=== PATIENT | male | born 1940 | race Caucasian/White ===

== ENCOUNTER → 2020-02-08 13:58 | Outpatient (BNVA) | payer MEDICARE, SELFPAY | PROVIDERS: PCP Internal Medicine; Visit Provider Internal Medicine Pulmonary Disease | DX: J44.9 Chronic obstructive pulmonary disease, unspecified (principal); Z79.899 Other long term (current) drug therapy | CPT/HCPCS: 99212 ==

== ENCOUNTER → 2020-10-10 11:22 | Outpatient (BNVA) | payer MEDICARE, SELFPAY | PROVIDERS: PCP Internal Medicine; Visit Provider Internal Medicine Pulmonary Disease | DX: J44.9 Chronic obstructive pulmonary disease, unspecified (principal) | CPT/HCPCS: 99212 ==

== ENCOUNTER → 2020-12-25 10:26 | Outpatient (BNVA) | payer MEDICARE, SELFPAY | PROVIDERS: PCP Internal Medicine; Visit Provider Internal Medicine Pulmonary Disease | DX: J44.9 Chronic obstructive pulmonary disease, unspecified (principal) | CPT/HCPCS: 99212 ==

== ENCOUNTER 2021-09-23 09:39 | Outpatient (REF) | payer MEDICARE, SELFPAY ==
[2021-09-23 11:29] LABS: MANUAL DIFF FLAG NO
[2021-09-23 11:41] LABS: Basophils Percent Auto 0.5 % (0-2); Eosinophils Absolute Auto 0.1 X10*3/uL (0.0-0.4); Eosinophils Percent Auto 2.1 % (0-4); Hematocrit 46.8 % (42.0-52.0); Hemoglobin 15.7 g/dl (14.0-18.0); Imm Gran Abs Auto 0.03 X10*3/uL (0.00-0.03); Imm Gran Pct Auto 0.5 % (0.0-0.4); Lymphocytes Percent Auto 14.5 % (20-40); Mean Corpuscular HGB Conc 33.5 g/dl (31.0-36.0); Mean Corpuscular Hemoglobin 32.2 pg (27.0-33.0); Mean Corpuscular Volume 95.9 fL (80.0-98.0); Mean Platelet Volume 10.7 fL (9.4-12.4); Monocytes Absolute Auto 0.5 X10*3/uL (0.1-1.2); Monocytes Percent Auto 6.8 % (2-11); Neutrophils Percent Auto 75.6 % (45-73); Platelet Count 211 X10*3/uL (160-400); Red Blood Count 4.88 X10*6/uL (4.60-5.80); Red Cell Distribution Width 13.3 % (11.0-16.0); White Blood Count 6.6 X10*3/uL (4.8-10.8)
[2021-09-23 12:15] LABS: TSH reflex Free T4 1.91 uIU/mL (0.32-4.0)
[2021-09-23 12:28] LABS: Alanine Aminotransferase 10 U/L (0-40); Albumin Level 4.4 g/dL (3.5-5.0); Alkaline Phosphatase 89 U/L (39-117); Anion Gap 12 (12-20); Aspartate Amino Transferase 16 U/L (5-37); Bilirubin Total 1.4 mg/dL (0.0-1.0); Blood Urea Nitrogen 11 mg/dL (9-16); Calcium 9.2 mg/dL (8.4-10.2); Carbon Dioxide 26 mmol/L (22-29); Chloride 104 mmol/L (96-108); Estimated Glomerular Filt Rate > 60; Glucose Fasting 102 mg/dL (60-99); Potassium 4.7 mmol/L (3.3-5.1); Sodium 137 mmol/L (135-145); Total Protein 6.9 g/dL (6.5-8.0)
== END 2021-09-23 09:40 | disposition home or self-care (01) ==
LOC: HO.HMGCLDS 09:39
PROVIDERS: PCP Internal Medicine; Visit Provider Internal Medicine
DX: Z00.00 Encounter for general adult medical examination without abnormal findings (principal); I10 Essential (primary) hypertension; E78.5 Hyperlipidemia, unspecified
CPT/HCPCS: 36415; 80053; 84443; 85025

== ENCOUNTER → 2021-10-05 10:37 | Outpatient (BNVA) | payer MEDICARE, SELFPAY | PROVIDERS: PCP Internal Medicine; Visit Provider Internal Medicine Pulmonary Disease | DX: C34.91 Malignant neoplasm of unspecified part of right bronchus or lung (principal); J44.9 Chronic obstructive pulmonary disease, unspecified | CPT/HCPCS: 99212 ==

== ENCOUNTER → 2022-01-25 10:11 | Outpatient (BNVA) | payer MEDICARE, SELFPAY | PROVIDERS: PCP Internal Medicine; Visit Provider Internal Medicine Pulmonary Disease | DX: J44.9 Chronic obstructive pulmonary disease, unspecified (principal); C34.90 Malignant neoplasm of unspecified part of unspecified bronchus or lung | CPT/HCPCS: 99212 ==

== ENCOUNTER → 2022-03-30 14:53 | Outpatient (REF) | payer OTHER, SELFPAY ==
--- NOTE | 2022-03-30 14:58 | CA_ITS ---
Transthoracic Echocardiogram Patient (Last, First, Middle): Quique Giang E Gender: Male Date of : 1940 Age: 82 Procedure Date: 03/30/2022 Procedure Type: Transthoracic Echocardiogram Location: OP Height: 182.88 cm Weight: 61.24 kg BSA: 1.80 m2 Heart Rate: 70 bpm BP: 108 / 70 mmHg Merchandising Specialist: SB Referring MD: Diana Parisi MD Symptoms: I35.0 - Nonrheumatic aortic (valve) stenosis Study Quality: Adequate ECG Rhythm: Sinus arrhythmia Conclusions: - The left ventricular systolic function is normal. The calculated ejection fraction is 70% by biplane method. - There is severe aortic valve stenosis. Findings Left Ventricle Normal left ventricular cavity size. The left ventricular systolic function is normal. The calculated ejection fraction is 70% by biplane method. There is no evidence of regional wall motion abnormalities. E/E prime ratio is between 8 and 15 consistent with indeterminate filling pressures. Evidence suggests grade I (mild) diastolic dysfunction. There is mild septal asymmetric hypertrophy. Right Ventricle Mildly increased right ventricular cavity size. There is normal right ventricular systolic function. Atria Both atria are normal in size. Aortic Valve There is moderate calcification of the aortic valve. There is severe aortic valve stenosis. The peak aortic velocity is 6.40 m/s with a calculated peak gradient of 164 mmHg. The mean gradient is 89 mmHg. The aortic valve area is 0.77 cm2. There is no aortic valve regurgitation. Mitral Valve There is mild anterior mitral leaflet thickening. There is mild mitral annular calcification. There is trace mitral valve regurgitation. There is no mitral valve stenosis. Pulmonic Valve The pulmonic valve is likely normal. Tricuspid Valve There is trace tricuspid valve regurgitation. Mild pulmonary hypertension is present. Great Vessels The asc aorta is normal in size. Venous The inferior vena cava is normal in size and collapses less than 50% with inspiration. Pericardium/Pleural There is no evidence of pericardial effusion. Prior Study Comparison Changes noted compared to prior study dated: 08/29/2018. Progression of aortic stenosis. Measurements 2D Linear Measurements IVSd: 1.10 0.6-0.9/0.6-1.0 cm LVIDd: 3.41 3.9-5.3/4.2-5.9 cm LVIDd Index: 1.89 2.4-3.2/2.2-3.1 cm/m2 LVIDs: 1.87 2.0-3.6 cm LVPWd: 0.96 0.7-1.1 cm Ao Root: 3.10 2.1-3.5 cm LA Diam: 3.10 2.7-3.8/3.0-4.0 cm LAIDs Index: 1.72 1.5-2.3 cm/m2 LV Mass: 129.26 67-162/88-224 g LV Mass Index: 71.81 43-95/49-115 g/m2 LVOT Diam: 2.30 3.0+(-)1.3 cm 2D Systolic Function EF 4C: 66.80 >55% EF 2C: 73.00 >55% EF BiP: 70.30 >55% Mitral Valve MV Pk E: 0.70 MV PK A: 1.00 MV Decel Time: 264.00 E/A: 0.70 E'Lateral: 6.74 E'Medial: 5.55 E/E' Med: 12.60 E/E' Lat: 10.40 PHT: 77.00 MVA PHT: 2.86 Decel Barton: 2.65 Aortic Valve AoV Pk Duarte: 6.40 AoV Mn Duarte: 4.43 AoV VTI: 1.59 AoV Pk Grad: 164.00 Aov Mn Grad: 89.00 ITALIA Cont.VTI: 0.77 AI Pk Duarte: 4.16 AI Barton: 2.20 LVOT LVOT Pk Duarte: 1.15 LVOT Mn Duarte: 0.85 LVOT VTI: 0.28 LVOT Pk Grad: 5.00 LVOT Mn Grad: 4.00 LVOT Diam: 2.30 LVOT Area: 4.15 Diastolic Function MV Pk E: 0.70 MV Pk A: 1.00 E/A: 0.70 E'Medial: 5.55 E/E' Med: 12.60 E' Laterial: 6.74 E/E' Lat: 10.40 Right Ventricle TAPSE (mm): 20.70 TVS' Duarte: 10.40 Tricuspid Valve TR Pk Duarte: 2.71 TR Pk Grad: 29.00 RA Press: 8.00 RVSP: 37.00 Great Vessels Aorta Ao Root-2D: 3.10 2.0-3.7 cm Sinus of Valsalva: 3.10 2.0-3.5 cm Ao Asc: 3.60 2.1-3.4 cm Pulmonary Valve PV Pk Duarte: 0.66 Peak PV Grad: 2.00 Updated in Other Vendor System with Status of Final Damion Duarte MD electronically signed on 03/30/2022 4:27:30 PM with status of Final
== END ==
LOC: HO.CARD 14:53
PROVIDERS: PCP Internal Medicine; Visit Provider Internal Medicine
DX: I35.0 Nonrheumatic aortic (valve) stenosis (principal)
CPT/HCPCS: 93306

== ENCOUNTER 2022-05-24 12:38 | Outpatient (REF) | payer OTHER, SELFPAY ==
--- NOTE | 2022-05-24 | PFT_ITS ---
INDICATION: COPD. SPIROMETRY: FEV1 to FVC 64% with an FEV1 of 1.73 L, which is 61% predicted and FVC of 3.76 L, which is 94% predicted. Bronchodilators were not used since the patient had already used bronchodilators in the last hour or so. Maximum voluntary ventilation is 51% predicted. LUNGS VOLUMES: Total lung capacity 86% predicted. DIFFUSION CAPACITY: DLCO 25% predicted. COMPARISON: None. INTERPRETATION: There is no obstructive or restrictive ventilatory defect consistent with moderate COPD. The patient had already used own short-acting beta agonist, so therefore bronchodilator response could not be tested. The patient does have moderate decrease in the maximum voluntary ventilation secondary to likely deconditioning, other neuromuscular deconditions cannot be ruled out. Lung volumes are within normal limits and the patient does have a severe diffusion impairment secondary to underlying COPD, emphysema, and/or pulmonary vascular conditions. The diffusion capacity should also be corrected for hemoglobin. Clinical correlation warranted. MD ROGELIO Delong/JAYESH / [id number]
== END 2022-05-24 12:39 | disposition home or self-care (01) ==
LOC: HO.RESP 12:38
PROVIDERS: PCP Internal Medicine; Visit Provider Internal Medicine Pulmonary Disease
DX: J44.9 Chronic obstructive pulmonary disease, unspecified (principal)
CPT/HCPCS: 94010; 94727; 94729

== ENCOUNTER → 2022-05-28 10:58 | Outpatient (BNVA) | payer MEDICARE, SELFPAY | PROVIDERS: PCP Internal Medicine; Visit Provider Internal Medicine Pulmonary Disease | DX: Z01.811 Encounter for preprocedural respiratory examination (principal); Z87.891 Personal history of nicotine dependence | CPT/HCPCS: 99212 ==

== ENCOUNTER 2022-07-05 14:11 | Outpatient (REF) | payer MEDICARE, SELFPAY ==
[2022-07-05 16:10] LABS: Influenza A PCR NEGATIVE (Negative); Influenza B PCR NEGATIVE (Negative); Resp Syncy Virus RNA Qual PCR NEGATIVE (Negative); SARS COV2 PCR INHOUSE NEGATIVE (Negative)
== END 2022-07-05 14:12 | disposition home or self-care (01) ==
LOC: HO.LNP 14:11
PROVIDERS: Visit Provider Internal Medicine
DX: Z20.822 Contact with and (suspected) exposure to COVID-19 (principal); J06.9 Acute upper respiratory infection, unspecified
CPT/HCPCS: 0241U

== ENCOUNTER → 2022-08-24 07:30 | Outpatient (REF) | payer MEDICARE, SELFPAY ==
--- NOTE | 2022-08-24 07:38 | CA_ITS ---
Transthoracic Echocardiogram Patient (Last, First, Middle): Quique Giang E Gender: Male Date of : 1940 Age: 82 Procedure Date: 08/24/2022 Procedure Type: Transthoracic Echocardiogram Location: [place] Height: 177.8 cm Weight: 58.97 kg BSA: 1.74 m2 Heart Rate: bpm BP: 158 / 70 mmHg Die Filer: SB Referring MD: yadira olivera Symptoms: AORTIC STENOSIS Study Quality: TDS narrow ribs, adequate apical window ECG Rhythm: Arryhythmia Conclusions: - The left ventricular systolic function is normal. The calculated ejection fraction is 63% by biplane method. - A bioprosthetic aortic valve is present. The prosthetic aortic valve appears to be functioning normally. Findings Left Ventricle Normal left ventricular cavity size. There is normal left ventricular wall thickness. The left ventricular systolic function is normal. The calculated ejection fraction is 63% by biplane method. There is no evidence of regional wall motion abnormalities. E/E prime ratio is >15, consistent with elevated filling pressures. Evidence suggests grade I (mild) diastolic dysfunction. Right Ventricle Normal right ventricular cavity size and systolic function. Atria Both atria are normal in size. There is a mobile atrial septum noted. Aortic Valve A bioprosthetic aortic valve is present. The prosthetic aortic valve appears to be functioning normally. The mean gradient is 10 mmHg. There is no aortic valve regurgitation. Mitral Valve The mitral valve appears normal. There is mild mitral valve regurgitation. There is no mitral valve stenosis. Pulmonic Valve The pulmonic valve is likely normal. Tricuspid Valve There is mild tricuspid valve regurgitation. Mild pulmonary hypertension is present. Great Vessels The asc aorta is normal in size. Venous The inferior vena cava is normal in size and collapses greater than 50% with inspiration. Pericardium/Pleural There is no evidence of pericardial effusion. Prior Study Comparison Changes noted compared to prior study dated: 06/30/2022. s/p TAVR. Measurements 2D Linear Measurements IVSd: 0.77 0.6-0.9/0.6-1.0 cm LVIDd: 3.54 3.9-5.3/4.2-5.9 cm LVIDd Index: 2.03 2.4-3.2/2.2-3.1 cm/m2 LVIDs: 2.31 2.0-3.6 cm LVPWd: 0.69 0.7-1.1 cm LA Diam: 2.40 2.7-3.8/3.0-4.0 cm LAIDs Index: 1.38 1.5-2.3 cm/m2 LV Mass: 83.63 67-162/88-224 g LV Mass Index: 48.06 43-95/49-115 g/m2 LVOT Diam: 2.20 3.0+(-)1.3 cm 2D Systolic Function EF 4C: 60.30 >55% EF 2C: 68.00 >55% EF BiP: 63.40 >55% Mitral Valve MV Pk E: 0.81 MV PK A: 0.99 MV Decel Time: 359.00 E/A: 0.80 E'Lateral: 5.44 E'Medial: 3.81 E/E' Med: 21.40 E/E' Lat: 15.00 PHT: 105.00 MVA PHT: 2.10 Decel Todd: 2.27 Aortic Valve AoV Pk Duarte: 2.20 AoV Mn Duarte: 1.52 AoV VTI: 0.48 AoV Pk Grad: 19.00 Aov Mn Grad: 10.00 ITALIA Cont.VTI: 2.04 LVOT LVOT Pk Duarte: 1.17 LVOT Mn Duarte: 0.86 LVOT VTI: 0.26 LVOT Pk Grad: 5.00 LVOT Mn Grad: 3.00 LVOT Diam: 2.20 LVOT Area: 3.80 Diastolic Function MV Pk E: 0.81 MV Pk A: 0.99 E/A: 0.80 E'Medial: 3.81 E/E' Med: 21.40 E' Laterial: 5.44 E/E' Lat: 15.00 Right Ventricle TAPSE (mm): 21.20 TVS' Duarte: 12.60 Tricuspid Valve TR Pk Duarte: 2.99 TR Pk Grad: 36.00 RA Press: 3.00 RVSP: 39.00 Great Vessels Aorta Ao Asc: 3.50 2.1-3.4 cm Pulmonary Valve PV Pk Duarte: 0.70 Peak PV Grad: 2.00 Updated in Other Vendor System with Status of Final Damion Duarte MD electronically signed on 08/24/2022 4:03:56 PM with status of Final
== END ==
LOC: HO.CARD 07:30
PROVIDERS: PCP Internal Medicine; Visit Provider Nurse Practitioner
DX: I35.2 Nonrheumatic aortic (valve) stenosis with insufficiency (principal)
CPT/HCPCS: 93306

== ENCOUNTER 2022-12-16 10:26 | Outpatient (AMB) | payer MEDICARE, SELFPAY ==
[2022-12-16 10:36] VITALS: BP 138/82; PULSE 69; O2SAT 96; BMI 16.3
--- NOTE | 2022-12-16 10:36 | A.OFFVIS_ITS ---
Intake Vital Signs 12/16/22 10:36 Height 6 ft 2 in Weight 126 lb 12.253 oz BMI 16.3 BP 138/82 Blood Pressure Location Rt brachial Position Sitting Pulse 69 Pulse Source Doppler Pulse Oximetry (%) 96 Oxygen Delivery Method Room Air Intake Visit Reasons: copd Allergies lisinopril Allergy (Unknown, Verified 12/16/22 10:40) anaphylaxis roflumilast [From Daliresp] Allergy (Unknown, Verified 12/16/22 10:40) Diarrhea, nausea doxycycline Adverse Reaction (Unknown, Verified 12/16/22 10:40) GERD HPI copd HPI Details 82-year-old gentleman former 25 pack yea rs smoker, quit 30 years prior, followed for severe COPD.? 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 He has been offered XRT by his radiation oncologist, however he does not want to proceed understanding that would accelerate his mor tality, but radiation treatment would worsen his dyspnea and he does not want that.? Now he is using duo nebs 4 times a day, albuterol MDI, and theophylline 300 with good control of his underlying symptoms.? He recently had his TAVR done with resultant improvement in dyspnea. Today he complains of bronchitic exacerbation symptomatic with cough and sputum production. [facility] Medical History (Updated 12/16/22 @ 11:10 by Cristian Duke MD) CVA (cerebral vascular accident) Colon polyps Aortic stenosis Hyperlipidemia HTN (hypertension) Lung cancer Annual physical exam Surgical History No pertinent past surgical history Family History Father Throat cancer Social History Housing: House Alcohol intake: never Patient Tobacco Use Status: Former Tobacco user Cigarette Packs Per Day: 1 Years Smoked: 35 e-Cigarette/Vaping Use: Never Used Second Hand Smoke Exposure: No service: Yes Current occupational status: retired Current occupation: printer Current occupational exposures/hazards: Yes (when working - smoke from machines ) Cognitive needs: No Hearing needs: No Vision needs: Yes Review of Systems Const Denies daytime sleepiness, Denies excessive sweating, Denies fatigue, Denies fever(s), Denies lethargy, Denies malaise, Denies night sweats, Denies snoring and Denies weight loss Eyes Denies blurry vision and Denies itchy eyes ENT Denies nasal congestion, Denies post nasal drip, Denies sinus pain, Denies sinus pressure and Denies other ( Thrush) Card Denies chest pain, Denies pedal edema, Denies dyspnea, Denies orthopnea and Denies paroxysmal nocturnal dyspnea Resp Reports cough, Denies hemoptysis, Reports excessive phlegm production, Denies dyspnea, Denies snoring and Denies wheezing GI Denies abdominal pain and Denies heartburn Musc Denies myalgias, Denies arthralgias and Denies joint swelling Skin/Breast Denies rash Neuro Denies memory loss and Denies seizure-like activity Psych Denies abnormal sleep pattern, Denies anxiety and Denies memory loss Endo Denies excessive sweating, Denies fatigue and Denies heat intolerance Telly/Lymph Denies easy bruising Aller/Immun Denies itchy eyes, Denies seasonal rhinorrhea and Denies wheezing Physical Exam Vital Signs: Last Vital Signs Pulse 69 12/16/22 10:36 BP 138/82 12/16/22 10:36 Pulse Ox 96 12/16/22 10:36 Oxygen Delivery Method Room Air 12/16/22 10:36 BMI result Body Mass Index 16.3 Const General: no acute distress and alert Nutritional Appearance: not obese Orientation/consciousness: Other orientation findings ( oriented) HEENT Head: Yes atraumatic Eyes General: appearance normal, both eyes and all related structures Sclerae: sclerae normal EOM: EOMs intact bilaterally Neck Neck: Yes supple Lymphatic: no lymphadenopathy noted Resp Effort & Inspection: normal respiratory effort and no use of accessory muscles Auscultation: clear to auscultation bilaterally Cardio Rate: regular rate Rhythm: regular rhythm Heart sounds: no gallops, no murmurs and no rubs Skin General skin exam: other ( warm) Extrem General: No clubbing, No cyanosis and No edema Assessment & Plan Assessment & Plan (1) COPD, severe: Code(s): J44.9 - Chronic obstructive pulmonary disease, unspecified Plan: Baseline well controlled on theophylline 300 and duo nebs. Now with an acute exacerbation. Will treat with a course of azithromycin. Codeine syrup for symptomatic relief of cough. (2) Lung cancer: Code(s): C34.90 - Malignant neoplasm of unspecified part of unspecified bronchus or lung Plan: Now with 3rd recurrence. Patient is not interested in further treatment. Medications: New codeine-guaifenesin 10-100 mg/5 mL 10 mL PO Q4-6H PRN 473 mL 1RF flu symptoms 30 days azithromycin For 250 mg dose pack: take 500 mg today (day 1), then 250 mg for 4 days (days 2-5) PO 6 tabs 0RF Changed From theophylline ER 300 mg PO DAILY To theophylline ER 300 mg PO DAILY 90 tabs 4RF 90 days Coding Level of Care Code Est Pt Level 4 (93906) Diagnoses COPD, severe J44.9 Lung cancer C34.90
== END 2022-12-16 10:54 | disposition home or self-care (01) ==
PROVIDERS: PCP Internal Medicine; Visit Provider Internal Medicine Pulmonary Disease
DX: J44.9 Chronic obstructive pulmonary disease, unspecified (principal); C34.90 Malignant neoplasm of unspecified part of unspecified bronchus or lung
CPT/HCPCS: 99214

== ENCOUNTER → 2022-12-16 10:26 | Outpatient (BNVA) | payer MEDICARE, SELFPAY | PROVIDERS: PCP Internal Medicine; Visit Provider Internal Medicine Pulmonary Disease | DX: J44.9 Chronic obstructive pulmonary disease, unspecified (principal); C34.91 Malignant neoplasm of unspecified part of right bronchus or lung; Z79.899 Other long term (current) drug therapy; Z87.891 Personal history of nicotine dependence | CPT/HCPCS: 99212 ==

== ENCOUNTER 2023-02-04 10:45 | Outpatient (AMB) | payer MEDICARE, SELFPAY ==
--- NOTE | 2023-02-04 10:55 | MHC.PC.OV ---
Vital Signs 02/04/23 10:57 Height 6 ft 2 in Weight 128 lb BMI 16.4 BP 110/74 Blood Pressure Location Rt brachial Position Sitting Pulse 65 Pulse Source Pulse Oximeter Pulse Oximetry (%) 98 Oxygen Delivery Method Room Air Intake Visit Reasons: Annual Physical Intake Note: Pt is here today for his PE Allergies lisinopril Allergy (Unknown, Verified 02/04/23 10:56) anaphylaxis roflumilast [From Daliresp] Allergy (Unknown, Verified 02/04/23 10:56) Diarrhea, nausea doxycycline Adverse Reaction (Unknown, Verified 02/04/23 10:56) GERD Tobacco use date assessed: 02/04/23 Fall risk assessment: No Falls in past year Last assessed Fall Risk: 02/04/23 Dental Screening Dental Screen Date: 02/04/23 Did you have a dental visit in the last 12 months?: No Was dental information given to patient?: Patient declined HPI Annual Physical HPI Details Pt presents for PE. [facility] Medical History (Updated 02/04/23 @ 11:41 by Diana Parisi MD) CVA (cerebral vascular accident) Colon polyps Aortic stenosis Hyperlipidemia HTN (hypertension) Lung cancer Annual physical exam Surgical History No pertinent past surgical history Family History Father Throat cancer Social History Housing: House Alcohol intake: never Patient Tobacco Use Status: Former Tobacco user Cigarette Packs Per Day: 1 Years Smoked: 35 e-Cigarette/Vaping Use: Never Used Second Hand Smoke Exposure: No service: Yes Current occupational status: retired Current occupation: printer Current occupational exposures/hazards: Yes (when working - smoke from machines ) Cognitive needs: No Hearing needs: No Vision needs: Yes Questionnaire Thrive Questionnaire Date Thrive assessed: 03/24/22 HAZEL-7 AMB Questionnaire HAZEL-7 Date HAZEL - 7 assessed: 07/28/22 Source: Developed by Drs. Herminio Herrera, Alexandra Shirley, Horace Jose and colleagues, with an educational nya from [employer] Review of Systems Const All systems reviewed & are unremarkable except as noted in HPI and below Reports no additional complaints Eyes Reports no additional complaints ENT Reports no additional complaints Card Reports no additional complaints Resp Reports no additional complaints GI Reports no additional complaints Reports no additional complaints Physical exam (Primary Care) Vital Signs: Last Vital Signs Pulse 105 H 02/04/23 10:57 BP 110/74 02/04/23 10:57 Pulse Ox 98 02/04/23 10:57 Oxygen Delivery Method Room Air 02/04/23 10:57 BMI result Body Mass Index 16.4 Tobacco/Smoking Status: Tobacco use Status Tobacco use date assessed 02/04/23 02/04/23 11:02 Patient Tobacco Use Status Former Tobacco user 02/04/23 11:02 e-Cigarette/Vaping Use Never Used 02/04/23 11:02 Thrive Assessment: Date of Thrive Assessment Date Thrive assessed 03/24/22 02/04/23 11:02 Const General: no acute distress HENMT Head: Yes normal to inspection Ears: hearing grossly normal bilaterally Face and sinus: Yes normal facial exam Mouth: Normal oral and palatal mucosa present Eyes General: appearance normal, both eyes and all related structures Resp Effort & Inspection: normal respiratory effort Auscultation: clear to auscultation bilaterally Cardio Rhythm: regular rhythm Heart sounds: S1 normal heart sound present and S2 normal heart sound present GI Inspection: Yes normal to inspection Palpation (GI): Soft to palpation Percussion: Yes normal to percussion Auscultation: normal bowel sounds Assessment and Plan Assessment & Plan (1) Hyperlipidemia: Code(s): E78.5 - Hyperlipidemia, unspecified Plan: on statin (2) HTN (hypertension): Code(s): I10 - Essential (primary) hypertension Plan: BP is low, pt will stop Amlodipine and cont Atenolol (3) Lung cancer: Comment: RECURRENT, S/P resection/chemo/Rtx, no further treatment recommended Code(s): C34.90 - Malignant neoplasm of unspecified part of unspecified bronchus or lung (4) Annual physical exam: Code(s): Z00.00 - Encounter for general adult medical examination without abnormal findings Plan: well balanced diet, regular physiscal activity, return for fasting labs (5) COPD, severe: Code(s): J44.9 - Chronic obstructive pulmonary disease, unspecified Plan: cont current tx (6) Colon polyps: Comment: precancerous colonoscopy 05/2020, no more colonoscopy Code(s): K63.5 - Polyp of colon (7) Aortic stenosis: Comment: severe, Echo 08/2018 peak gradient 77, s/p TAVR 05/29/22 at [facility] Code(s): I35.0 - Nonrheumatic aortic (valve) stenosis Orders: Orders Comprehensive [place]. Panel Fast Today C34.90 - Malignant neoplasm of unspecified part of unspecified bronchus or lung, E78.5 - Hyperlipidemia, unspecified, I10 - Essential (primary) hypertension, Z00.00 - Encounter for general adult medical examination without abnormal findings Lipid Panel Today C34.90 - Malignant neoplasm of unspecified part of unspecified bronchus or lung, E78.5 - Hyperlipidemia, unspecified, I10 - Essential (primary) hypertension, Z00.00 - Encounter for general adult medical examination without abnormal findings Complete Blood Count Auto Diff Today C34.90 - Malignant neoplasm of unspecified part of unspecified bronchus or lung, E78.5 - Hyperlipidemia, unspecified, I10 - Essential (primary) hypertension, Z00.00 - Encounter for general adult medical examination without abnormal findings Medications: Refilled clopidogrel 75 mg PO DAILY 90 tabs 3RF donepezil 10 mg PO DAILY 90 tabs 3RF tamsulosin 0.4 mg PO DAILY 90 caps 3RF theophylline ER 300 mg PO DAILY 90 days 90 tabs 4RF atenolol 50 mg PO DAILY 90 tabs 3RF atorvastatin 80 mg PO DAILY 90 tabs 3RF Discontinued amlodipine Discontinued Reason: Doctor's Order 2.5 mg PO DAILY 100 tabs 1RF Coding Level of Care Code Est Pt Prev Care >65y(60415) Diagnoses Hyperlipidemia E78.5 HTN (hypertension) I10 Lung cancer C34.90 Annual physical exam Z00.00 COPD, severe J44.9 Colon polyps K63.5 Aortic stenosis I35.0
[2023-02-04 10:57] VITALS: BP 110/74; PULSE 65; O2SAT 98; BMI 16.4
== END 2023-02-04 11:46 | disposition home or self-care (01) ==
PROVIDERS: Visit Provider Internal Medicine
DX: Z00.00 Encounter for general adult medical examination without abnormal findings (principal); C34.90 Malignant neoplasm of unspecified part of unspecified bronchus or lung; J44.9 Chronic obstructive pulmonary disease, unspecified; E78.5 Hyperlipidemia, unspecified; I10 Essential (primary) hypertension; K63.5 Polyp of colon; I35.0 Nonrheumatic aortic (valve) stenosis
CPT/HCPCS: 99397

== ENCOUNTER 2023-02-05 09:44 | Outpatient (REF) | payer MEDICARE, SELFPAY ==
[2023-02-05 11:07] LABS: MANUAL DIFF FLAG NO
[2023-02-05 11:14] LABS: Basophils Percent Auto 0.5 % (0-2); Eosinophils Absolute Auto 0.1 X10*3/uL (0.0-0.4); Eosinophils Percent Auto 1.8 % (0-4); Hematocrit 45.5 % (42.0-52.0); Hemoglobin 15.5 g/dl (14.0-18.0); Imm Gran Abs Auto 0.02 X10*3/uL (0.00-0.03); Imm Gran Pct Auto 0.3 % (0.0-0.4); Lymphocytes Absolute Auto 1.1 X10*3/uL (1.2-4.9); Lymphocytes Percent Auto 17.9 % (20-40); Mean Corpuscular HGB Conc 34.1 g/dl (31.0-36.0); Mean Corpuscular Hemoglobin 32.9 pg (27.0-33.0); Mean Corpuscular Volume 96.6 fL (80.0-98.0); Mean Platelet Volume 10.5 fL (9.4-12.4); Monocytes Absolute Auto 0.4 X10*3/uL (0.1-1.2); Monocytes Percent Auto 6.3 % (2-11); Neutrophils Absolute Auto 4.5 x10*3/uL (2.0-8.3); Neutrophils Percent Auto 73.2 % (45-73); Platelet Count 218 X10*3/uL (160-400); Red Blood Count 4.71 X10*6/uL (4.60-5.80); Red Cell Distribution Width 13.1 % (11.0-16.0); White Blood Count 6.2 X10*3/uL (4.8-10.8)
[2023-02-05 11:44] LABS: Alanine Aminotransferase 7 U/L (0-40); Albumin Level 3.9 g/dL (3.5-5.0); Alkaline Phosphatase 82 U/L (39-117); Anion Gap 9 (12-20); Aspartate Amino Transferase 15 U/L (5-37); Bilirubin Total 0.8 mg/dL (0.0-1.0); Blood Urea Nitrogen 12 mg/dL (9-16); Calcium 9.1 mg/dL (8.4-10.2); Carbon Dioxide 29 mmol/L (22-29); Chloride 105 mmol/L (96-108); Cholesterol 129 mg/dL (<200); Estimated Glomerular Filt Rate > 60; Glucose Fasting 104 mg/dL (60-99); HDL Cholesterol 53 mg/dL (>40); LDL Cholesterol Calculated 66 mg/dL (<100); Potassium 4.6 mmol/L (3.3-5.1); Sodium 138 mmol/L (135-145); Total Protein 6.6 g/dL (6.5-8.0); Triglycerides 54 mg/dL (<150)
== END 2023-02-05 09:45 | disposition home or self-care (01) ==
LOC: HO.HMGCLDS 09:44
PROVIDERS: PCP Internal Medicine; Visit Provider Internal Medicine
DX: Z00.00 Encounter for general adult medical examination without abnormal findings (principal); E78.5 Hyperlipidemia, unspecified; I10 Essential (primary) hypertension; J44.9 Chronic obstructive pulmonary disease, unspecified; C34.90 Malignant neoplasm of unspecified part of unspecified bronchus or lung
CPT/HCPCS: 36415; 80053; 80061; 85025

== ENCOUNTER 2023-04-22 10:02 | Outpatient (AMB) | payer MEDICARE, SELFPAY ==
[2023-04-22 10:07] VITALS: BP 122/64; PULSE 73; O2SAT 86; BMI 16.3
--- NOTE | 2023-04-22 10:07 | MHC.OFFVIS ---
Intake Vital Signs 04/22/23 10:07 Height 6 ft 2 in Weight 126 lb 12.253 oz BMI 16.3 BP 122/64 Blood Pressure Location Lt brachial Position Sitting Pulse 73 Pulse Source Pulse Oximeter Pulse Oximetry (%) 86 L Oxygen Delivery Method Room Air Intake Visit Reasons: copd Intake Note: pt is here for follow up and states he is short of breath with any movement. Men'S Leather Dress Belt Maker Required: No Allergies lisinopril Allergy (Unknown, Verified 04/22/23 10:13) anaphylaxis roflumilast [From Daliresp] Allergy (Unknown, Verified 04/22/23 10:13) Diarrhea, nausea doxycycline Adverse Reaction (Unknown, Verified 04/22/23 10:13) GERD HPI copd HPI Details 82-year-old gentleman former 25 pack years smoker, quit 30 years prior, followed for severe COPD.? 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 He has been offered XRT by his radiation oncologist, however he does not want to proceed understanding that would accelerate his mortality, but radiation treatment would worsen his dyspnea and he does not want that.? Now he is using duo nebs 4 times a day, albuterol MDI, and theophylline 300 with good control of his underlying symptoms.? He had his TAVR done with some improvement in dyspnea. Today he complains of slowly worsening dyspnea. 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 from machines ) Cognitive needs: No Hearing needs: No Vision needs: Yes Review of Systems Const Denies daytime sleepiness, Denies excessive sweating, Denies fatigue, Denies fever(s), Denies lethargy, Denies malaise, Denies night sweats, Denies snoring and Denies weight loss Eyes Denies blurry vision and Denies itchy eyes ENT Denies nasal congestion, Denies post nasal drip, Denies sinus pain, Denies sinus pressure and Denies other ( Thrush) Card Denies chest pain, Denies pedal edema, Denies dyspnea, Reports dyspnea on exertion, Denies orthopnea and Denies paroxysmal nocturnal dyspnea Resp Denies cough, Denies hemoptysis, Denies excessive phlegm production, Denies dyspnea, Reports dyspnea on exertion, Denies snoring and Denies wheezing GI Denies abdominal pain and Denies heartburn Musc Denies myalgias, Denies arthralgias and Denies joint swelling Skin/Breast Denies rash Neuro Denies memory loss and Denies seizure-like activity Psych Denies abnormal sleep pattern, Denies anxiety and Denies memory loss Endo Denies excessive sweating, Denies fatigue and Denies heat intolerance Telly/Lymph Denies easy bruising Aller/Immun Denies itchy eyes, Denies seasonal rhinorrhea and Denies wheezing Physical Exam Vital Signs: Last Vital Signs Pulse 73 04/22/23 10:07 BP 122/64 04/22/23 10:07 Pulse Ox 86 L 04/22/23 10:07 Oxygen Delivery Method Room Air 04/22/23 10:07 BMI result Body Mass Index 16.3 Const General: no acute distress and alert Nutritional Appearance: not obese Orientation/consciousness: Other orientation findings ( oriented) HEENT Head: Yes atraumatic Eyes General: appearance normal, both eyes and all related structures Sclerae: sclerae normal EOM: EOMs intact bilaterally Neck Neck: Yes supple Lymphatic: no lymphadenopathy noted Resp Effort & Inspection: normal respiratory effort and no use of accessory muscles Auscultation: clear to auscultation bilaterally Cardio Rate: regular rate Rhythm: regular rhythm Heart sounds: no gallops, no murmurs and no rubs Skin General skin exam: other ( warm) Extrem General: No clubbing, No cyanosis and No edema Office Procedures 6 Minute Walk Time:: 10:20 SPO2 % at rest: 94 Pulse at rest: 71 SPO2 % during excercise: 84 Pulse during excercise: 72 SPO2 % after excercise: 94 Pulse after excercise: 65 Distance in yards walked: 180 Sheeba Score: 4 Performance Observations:: Quique walked on level ground without assistance, he walked on room air for 60 yards before his SPO2 decreased to 84%, O2 started at 2 lpm and with a brief rest his SPO2 recovered to 94%, his SPO2 decreased again to 88% and O2 was increased to 3 lpm, his SPO2 recovered to 94% on 3 lpm. [id number] - 6 Minute Walk Assessment & Plan Assessment & Plan (1) COPD, severe: Code(s): J44.9 - Chronic obstructive pulmonary disease, unspecified Plan: Baseline controlled on duo nebs, theophylline 300, and albuterol MDI. Continue current regimen. (2) Supplemental oxygen dependent: Code(s): Z99.81 - Dependence on supplemental oxygen Plan: In office supplemental oxygen evaluation/6 minute walk performed. Patient requires supplemental oxygen at 3 L continuous flow with exertion to maintain normal oximetry. (3) Lung cancer: Comment: RECURRENT, S/P resection/chemo/Rtx, no further treatment recommended Code(s): C34.90 - Malignant neoplasm of unspecified part of unspecified bronchus or lung Plan: Third recurrence patient this time is not interested in further treatment. Orders: Orders AMB 6 minute walk Today J44.9 - Chronic obstructive pulmonary disease, unspecified Coding Level of Care Code Est Pt Level 4 (91694) Diagnoses COPD, severe J44.9 Supplemental oxygen dependent Z99.81 Lung cancer C34.90 CPT Codes Coding ([id number])
[2023-04-22 10:33] VITALS: PULSE 71; O2SAT 94
== END 2023-04-22 10:36 | disposition home or self-care (01) ==
PROVIDERS: PCP Internal Medicine; Visit Provider Internal Medicine Pulmonary Disease
DX: J44.9 Chronic obstructive pulmonary disease, unspecified (principal); Z99.81 Dependence on supplemental oxygen; C34.90 Malignant neoplasm of unspecified part of unspecified bronchus or lung
CPT/HCPCS: 94618; 99214

== ENCOUNTER → 2023-04-22 10:02 | Outpatient (BNVA) | payer MEDICARE, SELFPAY | PROVIDERS: PCP Internal Medicine; Visit Provider Internal Medicine Pulmonary Disease | DX: J44.9 Chronic obstructive pulmonary disease, unspecified (principal); C34.90 Malignant neoplasm of unspecified part of unspecified bronchus or lung; Z99.81 Dependence on supplemental oxygen | CPT/HCPCS: 94618; 99212 ==

== ENCOUNTER 2023-06-01 11:31 | Outpatient (AMB) | payer MEDICARE, SELFPAY ==
[2023-06-01 11:33] VITALS: BP 110/62; PULSE 58; O2SAT 94; BMI 16.6
--- NOTE | 2023-06-01 11:33 | A.OFFVIS_ITS ---
Intake Vital Signs 06/01/23 11:33 Height 6 ft 2 in Weight 128 lb 15.527 oz BMI 16.6 BP 110/62 Blood Pressure Location Rt brachial Position Sitting Pulse 58 Pulse Source Doppler Pulse Oximetry (%) 94 Oxygen Delivery Method Nasal Cannula Oxygen Flow Rate 3 Intake Visit Reasons: copd Allergies lisinopril Allergy (Unknown, Verified 04/22/23 10:13) anaphylaxis roflumilast [From Daliresp] Allergy (Unknown, Verified 04/22/23 10:13) Diarrhea, nausea doxycycline Adverse Reaction (Unknown, Verified 04/22/23 10:13) GERD HPI copd HPI Details 82-year-old gentleman former 25 pack yea rs smoker, quit 30 years prior, followed for severe COPD.? 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 He has been offered XRT by his radiation oncologist, however he does not want to proceed understanding that would accelerate his mortality, but radiation treatment would worsen his dyspnea and he does not want that.? Now he is using duo nebs 4 times a day, albuterol MDI, and theophylline 200 with good control of his underlying symptoms.? He had his TAVR done with some improvement in dyspnea. Today he continues to complain of slowly worsening dyspnea. 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 ) Cognitive needs: No Hearing needs: No Vision needs: Yes Review of Systems Const Denies daytime sleepiness, Denies excessive sweating, Reports fatigue, Denies fever(s), Reports lethargy, Denies malaise, Denies night sweats, Denies snoring and Reports weight loss Eyes Denies blurry vision and Denies itchy eyes ENT Denies nasal congestion, Denies post nasal drip, Denies sinus pain, Denies sinus pressure and Denies other ( Thrush) Card Denies chest pain, Denies pedal edema, Denies dyspnea, Denies orthopnea and Denies paroxysmal nocturnal dyspnea Resp Denies cough, Denies hemoptysis, Denies excessive phlegm production, Denies dyspnea, Denies snoring and Denies wheezing GI Denies abdominal pain and Denies heartburn Musc Denies myalgias, Denies arthralgias and Denies joint swelling Skin/Breast Denies rash Neuro Denies memory loss and Denies seizure-like activity Psych Denies abnormal sleep pattern, Denies anxiety and Denies memory loss Endo Denies excessive sweating, Reports fatigue and Denies heat intolerance Telly/Lymph Denies easy bruising Aller/Immun Denies itchy eyes, Denies seasonal rhinorrhea and Denies wheezing Physical Exam Vital Signs: Last Vital Signs Pulse 58 06/01/23 11:33 BP 110/62 06/01/23 11:33 Pulse Ox 94 06/01/23 11:33 Oxygen Delivery Method Nasal Cannula 06/01/23 11:33 Oxygen Flow Rate 3 06/01/23 11:33 BMI result Body Mass Index 16.6 Const General: no acute distress and alert Nutritional Appearance: cachectic Orientation/consciousness: Other orientation findings ( oriented) HEENT Head: Yes atraumatic Eyes General: appearance normal, both eyes and all related structures Sclerae: sclerae normal EOM: EOMs intact bilaterally Neck Neck: Yes supple Lymphatic: no lymphadenopathy noted Resp Effort & Inspection: normal respiratory effort and no use of accessory muscles Auscultation: clear to auscultation bilaterally Cardio Rate: regular rate Rhythm: regular rhythm Heart sounds: no gallops, no murmurs and no rubs Skin General skin exam: other ( warm) Extrem General: No clubbing, No cyanosis and No edema Assessment & Plan Assessment & Plan (1) COPD, severe: Code(s): J44.9 - Chronic obstructive pulmonary disease, unspecified (2) Lung cancer: Code(s): C34.90 - Malignant neoplasm of unspecified part of unspecified bronchus or lung (3) Supplemental oxygen dependent: Code(s): Z99.81 - Dependence on supplemental oxygen Plan Recurrent lung cancer with no further treatments available, progressive. Patient is considering hospice. Continue duo nebs and theophylline. Continue supplemental oxygen to maintain O2 saturation of 88-92%. Medications: New theophylline ER 400 mg PO DAILY 30 tabs 6RF Discontinued theophylline ER Discontinued Reason: Doctor's Order 300 mg PO DAILY 90 days 90 tabs 4RF Coding Level of Care Code Est Pt Level 4 (01533) Diagnoses COPD, severe J44.9 Lung cancer C34.90 Supplemental oxygen dependent Z99.81
== END 2023-06-01 11:58 | disposition home or self-care (01) ==
PROVIDERS: PCP Internal Medicine; Visit Provider Internal Medicine Pulmonary Disease
DX: J44.9 Chronic obstructive pulmonary disease, unspecified (principal); C34.90 Malignant neoplasm of unspecified part of unspecified bronchus or lung; Z99.81 Dependence on supplemental oxygen
CPT/HCPCS: 99214

== ENCOUNTER → 2023-06-01 11:31 | Outpatient (BNVA) | payer MEDICARE, SELFPAY | PROVIDERS: PCP Internal Medicine; Visit Provider Internal Medicine Pulmonary Disease | DX: J44.9 Chronic obstructive pulmonary disease, unspecified (principal); C34.90 Malignant neoplasm of unspecified part of unspecified bronchus or lung; Z99.81 Dependence on supplemental oxygen; Z87.891 Personal history of nicotine dependence | CPT/HCPCS: 99212 ==

== ENCOUNTER 2023-10-11 09:23 | Outpatient (AMB) | payer MEDICARE, SELFPAY ==
[2023-10-11 09:41] VITALS: BP 120/74; BMI 14.4
--- NOTE | 2023-10-11 09:41 | A.OFFVIS_ITS ---
Vital Signs 10/11/23 09:41 Height 6 ft 2 in Weight 112 lb 6.972 oz BMI 14.4 BP 120/74 Blood Pressure Location Lt brachial Position Sitting Intake Visit Reasons: COPD Allergies lisinopril Allergy (Unknown, Verified 04/22/23 10:13) anaphylaxis roflumilast [From Daliresp] Allergy (Unknown, Verified 04/22/23 10:13) Diarrhea, nausea doxycycline Adverse Reaction (Unknown, Verified 04/22/23 10:13) GERD HPI HPI COPD: Details: 83-year-old gentleman former 25 pack years smoker, quit 30 years prior, followed for severe COPD now on 4-5 L of supplemental oxygen.? 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 He has been offered XRT by his radiation oncologist, however he does not want to proceed understanding that would accelerate his mortality, but radiation treatment would worsen his dyspnea and he does not want that.? Now he is using duo nebs 4 times a day, albuterol MDI, and theophylline 200 with worsening control of his underlying symptoms.? He had his TAVR done with some improvement in dyspnea. Unfortunately, his PET scan shows further progression of his underlying lung cancer with essentially no treatments available at this time. 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 Patient is interested in hospice. 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 ) Cognitive needs: No Hearing needs: No Vision needs: Yes Review of Systems Const Denies daytime sleepiness, Denies excessive sweating, Denies fatigue, Denies fever(s), Denies lethargy, Denies malaise, Denies night sweats, Denies snoring and Reports weight loss Eyes Denies blurry vision and Denies itchy eyes ENT Denies nasal congestion, Denies post nasal drip, Denies sinus pain, Denies sinus pressure and Denies other ( Thrush) Card Reports chest pain (Pleural pain), Denies pedal edema, Reports dyspnea, Reports dyspnea on exertion, Denies orthopnea and Denies paroxysmal nocturnal dyspnea Resp Denies cough, Denies hemoptysis, Denies excessive phlegm production, Reports dyspnea, Reports dyspnea on exertion, Denies snoring and Denies wheezing GI Denies abdominal pain and Denies heartburn Musc Denies myalgias, Denies arthralgias and Denies joint swelling Skin/Breast Denies rash Neuro Denies memory loss and Denies seizure-like activity Psych Denies abnormal sleep pattern, Denies anxiety and Denies memory loss Endo Denies excessive sweating, Denies fatigue and Denies heat intolerance Telly/Lymph Denies easy bruising Aller/Immun Denies itchy eyes, Denies seasonal rhinorrhea and Denies wheezing Physical Exam Vital Signs: Last Vital Signs BP 120/74 10/11/23 09:41 BMI result Body Mass Index 14.4 Const General: no acute distress and alert Nutritional Appearance: cachectic Orientation/consciousness: Other orientation findings ( oriented) HEENT Head: Yes atraumatic Eyes General: appearance normal, both eyes and all related structures Sclerae: sclerae normal EOM: EOMs intact bilaterally Neck Neck: Yes supple Lymphatic: no lymphadenopathy noted Resp Effort & Inspection: normal respiratory effort and no use of accessory muscles Auscultation: clear to auscultation bilaterally Cardio Rate: regular rate Rhythm: regular rhythm Heart sounds: no gallops, no murmurs and no rubs Skin General skin exam: other ( warm) Extrem General: No clubbing, No cyanosis and No edema Assessment & Plan Assessment & Plan (1) Metastatic lung cancer (metastasis from lung to other site): Code(s): C34.90 - Malignant neoplasm of unspecified part of unspecified bronchus or lung Category: Medical (2) Pleural pain: Code(s): R07.81 - Pleurodynia Category: Medical (3) COPD, severe: Code(s): J44.9 - Chronic obstructive pulmonary disease, unspecified Category: Medical (4) Supplemental oxygen dependent: Code(s): Z99.81 - Dependence on supplemental oxygen Category: Medical Plan 3rd recurrence of lung cancer, now with metastasis to pleural surface. No treatment options. PET scanning by Radiation Oncology with further progression. Patient is interested in hospice. Will refer to hospice. Continue supplemental oxygen. Start on extended-release opioids for pain from pleural metastasis. Orders: [facility]errals [facility] Referral C34.90 - Malignant neoplasm of unspecified part of unspecified bronchus or lung Medications: New oxycodone ER (OxyContin) Partial Fill upon patient request. 10 mg PO BID 60 tabs 0RF C34.90 - Malignant neoplasm of unspecified part of unspecified bronchus or lung, R07.81 - Pleurodynia Coding Level of Care Code Est Pt Level 5 (70291) Complex EM visit Add On G2211 Diagnoses Metastatic lung cancer (metastasis from lung to other site) C34.90 Pleural pain R07.81 COPD, severe J44.9 Supplemental oxygen dependent Z99.81
== END 2023-10-11 10:05 | disposition home or self-care (01) ==
PROVIDERS: PCP Internal Medicine; Visit Provider Internal Medicine Pulmonary Disease
DX: C34.90 Malignant neoplasm of unspecified part of unspecified bronchus or lung (principal); R07.81 Pleurodynia; J44.9 Chronic obstructive pulmonary disease, unspecified; Z99.81 Dependence on supplemental oxygen
CPT/HCPCS: 99214; G2211

== ENCOUNTER → 2023-10-11 09:23 | Outpatient (BNVA) | payer MEDICARE, SELFPAY | PROVIDERS: PCP Internal Medicine; Visit Provider Internal Medicine Pulmonary Disease | DX: J44.9 Chronic obstructive pulmonary disease, unspecified (principal); C34.90 Malignant neoplasm of unspecified part of unspecified bronchus or lung; R07.81 Pleurodynia; Z99.81 Dependence on supplemental oxygen | CPT/HCPCS: 99212 ==